=== PATIENT | female | born 1995 | race African-American/Black ===

== ENCOUNTER 2017-01-07 18:01 | Emergency (ER) | payer MEDICAID, OTHER ==
[~2017-01-07] VITALS: Ht 170.2 cm; Wt 61.0 kg
[2017-01-07 20:15] VITALS: BP 110/56
[2017-01-07] MEDS ORDERED: KETOROLAC 60MG/2ML VIAL IM ONE (20:15)
[2017-01-07] MEDS ORDERED: CYCLOBENZAPRINE 10MG TABLET PO ONE (20:15)
== END 2017-01-07 21:01 | disposition home or self-care (01) ==
LOC: ER 18:26
DX: R51 Headache (principal); M54.2 Cervicalgia
CPT/HCPCS: 72040; 81025; 96372; 99284; J1885